=== PATIENT | female | born 1985 | race Caucasian/White ===

== ENCOUNTER → 2017-01-26 | Day surgery (SDC) | payer OTHER ==
[2017-01-13 11:03] VITALS: Ht 154.9 cm; Wt 50.0 kg
--- NOTE | 2017-01-25 12:52 | History and Physical: Surg Cnt ---
History & Physical Date Jan 25, 2017. Chief Complaint nasal obstruction History of Present Illness The patient is a 31 year old female with complaints of nasal blockage Additional History Hepatic Disease: No Endocrine Disorder: No Kidney Disease: No Hypertension: No Heart Disease: No Bleeding Tendencies: No Infectious Diseases: No Allergies Coded Allergies: Sulfa Antibiotics (Verified Allergy, Unknown, HIVES, 09/15/15) Home Medications Scheduled Levocetirizine Dihydrochloride (Xyzal), 1 TAB PO QAM Nortriptyline Hcl (Pamelor), 75 MG PO HS Probiotic Product (Probiotic), 1 CAP DAILY Scheduled PRN Fluticasone Propionate (Nasal) (Flonase Allergy Relief), 1 SPRAY NA DAILY PRN for CONGESTION Physical Examination Skin: warm/dry, no rash Eyes: normal inspection, EOMI, sclerae normal ENT: + pertinent finding (septal deviation with obstruction) Head: normocephalic, atraumatic Neck: supple, no adenopathy, trachea midline Respiratory/Chest: lungs clear, normal breath sounds, no respiratory distress Cardiovascular: regular rate, rhythm, no edema, no murmur Abdomen / GI: normal bowel sounds, non tender Back: normal inspection Extremities: normal inspection, normal range of motion Neurologic/Psych: no motor/sensory deficits, alert, normal reflexes, oriented x 3 Diagnosis septal deviation, rhinitis Plan of Treatment septoplasty, celon turbinates
[~2017-01-26] VITALS: Ht 154.9 cm; Wt 50.0 kg
[~2017-01-26] MED LIST: ATROPINE SULFATE 0.1 MG/ML 5ML SYR IV PRN; BACITRACIN OINT 15 GM TUBE ONE; CEFAZOLIN 1000MG/55 ML D5W IV SCH; DEXAMETHASONE SOD INJ 4 MG/ML VIAL ONE; EpHEDrine SULFATE INJ 50 MG/ML AMP IV PRN; EpINEphrine INJ 1MG/ML AMP 1 MG/ML AMP ONE; FENTANYL CITRATE INJ 50 MCG/1 ML 2 ML VIAL IV PRN; FENTANYL CITRATE INJ 50 MCG/1 ML 2 ML VIAL ONE; FLUT0.15; GELATIN SPONGE 12-7MM ONE; LEVO-371 PO; LIDO 2%/EPINEPHRINE 1:100000 20 ML VIAL INFIL ONE; LIDOCAINE 4% MPF SOAK 5 ML = 1 DOSE TOP ONE; LIDOCAINE HCL 2% 2 ML VIAL (20MG/ML) ONE; METOCLOPRAMIDE HCL INJ 5 MG/ML 2 ML VIAL ONE; MIDAZOLAM HCL 1 MG/ML 2ML VIAL ONE; MISCCAP80; NORT75CA2 PO; NURSING VERBAL MED ORDER ONE; ONDANSETRON INJ 2 MG/ML 2 ML VIAL IV PRN; ONDANSETRON INJ 2 MG/ML 2 ML VIAL ONE; OXYC-57 PO; OXYCODONE/ACETAMINOPHEN 5-325 TAB PO PRN; PROMETHAZINE HCL INJ 6.25 MG in SODIUM CHLORIDE 0.9% 50ML 50 ML IV PRN; PROPOFOL IV EMULSION 10 MG/ML 20 ML VIAL IV ONE; SCOPOLAMINE 1.5 MG TDSY TD ONE; SODIUM CHLORIDE 0.9% 1000ML 1,000 ML IV SCH
--- NOTE | 2017-01-26 07:47 | History & Physical Bridge Note ---
H&P Re-Evaluation Bridge Note: I have examined the patient, reviewed the History & Physical and in the interval since the performance of the History & Physical I have noted the following changes of clinical significance: No changes noted
[2017-01-26] MEDS: LACTATED RINGER'S 1000ML 1,000 ML IV SCH ×2 (08:03→09:29)
--- NOTE | 2017-01-26 09:04 | Discharge Instructions-SurgCtr ---
Discharge Instructions Date of Service Jan 26, 2017. Visit Reason for Visit: Septal Deviation Discharge Discharge Diagnosis / Problem: same Discharge Goals Goal(s): Improve function Activity Recommendations Activity Limitations: per Instructions/Follow-up section Anesthesia . Post Anesthesia Instructions: If you have had General Anesthesia or IV Sedation: * Do not drive today. * Resume driving when surgeon permits. * Do not make important decisions or sign legal documents today. * Call surgeon for: 1. Temperature elevations greater than 101 degrees F. 2. Uncontrollable pain. 3. Excessive bleeding. 4. Persistent nausea and vomiting. 5. Medication intolerance (nausea, vomiting or rash). * For nausea and vomiting use only clear liquids such as: tea, soda, bouillon until nausea subsides, then gradually increase diet as tolerated. * If you have any concerns or questions, call your surgeon's office. If physician is unavailable and it is an emergency, call 911 or go to the nearest emergency room. . Instructions / Follow-Up Instructions / Follow-Up ACTIVITY RECOMMENDATIONS: * Being up and around is good, but no strenuous activity, heavy lifting or physical exertion for one week. * Keep your head elevated 30 degrees when lying down or sleeping. * Do not blow your nose for 48 hours, sniff back instead. * Avoid hot showers. OVER THE COUNTER MEDICATIONS: * You may use Tylenol * Avoid aspirin or aspirin containing products, e.g. as they may increase bleeding. SPECIAL CARE INSTRUCTIONS: * Expect to have bloody drainage from your nose and/or down your throat for one to three days. Change drip pad as needed. * Begin irrigating your nose with saline solution today, at least six to ten times per day and sniff back to help remove old clots or crust. * You may experience nasal and facial congestion, pain and pressure, this is normal. * Please call with any significant and/or progressive pain, redness, swelling around the eyes, visual changes, fever of 101.5 degrees F, active bleeding or any problems or concerns. * If active bleeding occurs, spray the nose three times at one minute intervals with Afrin spray and call or cell phone: . If unable to reach the doctor, go to the nearest Emergency Department. Special Diet: * Avoid extremely hot fluids. FOLLOW UP VISIT: Follow-up Visit with Dr. Pearl If not already scheduled, please call to schedule. Diet Recommendations Home Diet: no limitations Procedures Procedures Performed: Septoplasty, Celon Turbinates Pending Studies Studies pending at discharge: no Medical Emergencies . Who to Call and When: Medical Emergencies: If at any time you feel your situation is an emergency, please call 911 immediately. . Non-Emergent Contact Non-Emergency issues call your: Primary Care Provider . . "Provider Documentation" section prepared by Akua Pearl. [facility] [place] Drug Monitoring Program Search Results: no issues identified
--- NOTE | 2017-01-26 09:27 | [facility] Operative Report ---
Operative Report Operative Date Jan 26, 2017. Pre-Operative Diagnosis Septal Deviation Post-Operative Diagnosis Same Procedure(s) Performed Septoplasty, Celon Turbinates Surgeon Dr. Melani Pearl Code And Test Clerk Surgeon(s) None Estimated Blood Loss 10 cc Findings Septal deviation to the left with obstruction Specimens None Drains none Anesthesia Gen. Complication(s) None Disposition Recovery Room / PACU Implants None Indications 31-year-old lady with left-sided nasal obstruction due to septal deviation Description of Procedure The patient was brought to the operating room placed in the supine position general anesthesia was induced using LMA. The nose was decongested using topical cottonoids with a solution of 4 mL of 4% Xylocaine mixed with 1 mL of epinephrine. Injection of 2% Xylocaine with 1 100,000 strength epinephrine was used. The left hemitransfixion incision was made using the 15 blade. The mucoperichondrial was elevated off of the left side of the septum. Cartilage was inferiorly from the vomer maxillary crest and posteriorly from the perpendicular plate of the ethmoid. Bilateral posterior tunnels were elevated. The bony cartilaginous spur projecting to the left was removed using the 15 blade and caudal dissector and Cherise forceps and the Adryan- Sergio rongeurs. A columella pocket was made using the iris scissors and the caudal end of the septum was implanted into this columella pocket the septum was returned to the midline in this manner. The incision was closed with continuous 40 plain gut suture in a mattress fashion. The inferior turbinates were treated with radiofrequency volume reduction using the Celon machine creating 3 lesions in the right inferior turbinate and for lesions in the left inferior turbinate with the settings at 18. The inferior turbinates were fractured laterally. Anterior nasal packing of Gelfoam was placed the patient tolerated the procedure well and was taken to the recovery area in satisfactory condition. I attest to the content of the Intraoperative Record and any orders documented therein. Any exceptions are noted below.
--- NOTE | 2017-01-26 10:19 | Anesthesiology Progress Note ---
Anesthesia Post Op Note Date & Time Jan 26, 2017 at 10:19 Vital Signs Pain Intensity: 5.0 Vital Signs Past 12 Hours Date Time Temp Pulse Resp B/P (MAP) Pulse Ox O2 Delivery O2 Flow Rate FiO2 01/26/17 09:43 61 13 99 01/26/17 09:43 59 13 01/26/17 09:43 61 13 99 01/26/17 09:43 36.4 59 13 01/26/17 09:42 114/53 01/26/17 09:42 114/53 01/26/17 09:38 66 14 01/26/17 09:38 66 14 100 01/26/17 09:38 66 14 01/26/17 09:38 66 14 100 01/26/17 09:36 122/81 01/26/17 09:36 122/81 01/26/17 09:33 53 11 99 01/26/17 09:33 53 11 01/26/17 09:33 53 11 01/26/17 09:33 53 11 99 01/26/17 09:31 122/83 01/26/17 09:31 122/83 01/26/17 09:28 61 13 01/26/17 09:28 56 13 99 01/26/17 09:28 61 13 01/26/17 09:28 56 13 99 01/26/17 09:27 109/63 01/26/17 09:27 109/63 01/26/17 09:23 54 16 01/26/17 09:23 54 16 01/26/17 09:23 52 16 100 01/26/17 09:23 52 16 100 01/26/17 09:21 126/92 01/26/17 09:21 126/92 01/26/17 09:18 59 13 01/26/17 09:18 58 13 100 01/26/17 09:18 58 13 100 01/26/17 09:18 59 13 01/26/17 09:16 127/90 01/26/17 09:16 127/90 01/26/17 09:13 61 12 01/26/17 09:13 60 12 100 01/26/17 09:13 60 12 100 01/26/17 09:13 61 12 01/26/17 09:11 120/81 01/26/17 09:11 120/81 01/26/17 09:08 71 11 7/6/17 09:08 70 11 100 01/26/17 09:08 70 11 100 01/26/17 09:08 71 11 01/26/17 09:05 121/85 01/26/17 09:05 121/85 01/26/17 09:04 36.5 71 16 118/86 100 Humidified Oxygen 6 Mask 01/26/17 09:04 118/82 01/26/17 09:04 118/82 01/26/17 07:36 36.9 68 16 103/69 (80) 97 Room Air Notes Mental Status: alert / awake / arousable, participated in evaluation Pt Amnestic to Procedure: Yes Nausea / Vomiting: adequately controlled Pain: adequately controlled Airway Patency, RR, SpO2: stable & adequate BP & HR: stable & adequate Hydration State: stable & adequate Anesthetic Complications: no major complications apparent
[2017-01-26 10:45] VITALS: BP 126/85; PULSE 59; TEMP 36.6; O2SAT 100
== END | disposition home or self-care (01) ==
LOC: X.SURG 07:26 → MERGE 08:15
PROVIDERS: ATTEND Otolaryngology
DX: J34.2 Deviated nasal septum (principal); J34.89 Other specified disorders of nose and nasal sinuses

== ENCOUNTER → 2018-02-19 | Outpatient (CLI) | payer OTHER ==
[~2018-02-19] MED LIST changes: -ATROPINE SULFATE 0.1 MG/ML 5ML SYR IV PRN; -BACITRACIN OINT 15 GM TUBE ONE; -CEFAZOLIN 1000MG/55 ML D5W IV SCH; -DEXAMETHASONE SOD INJ 4 MG/ML VIAL ONE; -EpHEDrine SULFATE INJ 50 MG/ML AMP IV PRN; -EpINEphrine INJ 1MG/ML AMP 1 MG/ML AMP ONE; -FENTANYL CITRATE INJ 50 MCG/1 ML 2 ML VIAL IV PRN; -FENTANYL CITRATE INJ 50 MCG/1 ML 2 ML VIAL ONE; -GELATIN SPONGE 12-7MM ONE; -LEVO-371 PO; +LEVO5TAB2 PO; -LIDO 2%/EPINEPHRINE 1:100000 20 ML VIAL INFIL ONE; -LIDOCAINE 4% MPF SOAK 5 ML = 1 DOSE TOP ONE; -LIDOCAINE HCL 2% 2 ML VIAL (20MG/ML) ONE; -METOCLOPRAMIDE HCL INJ 5 MG/ML 2 ML VIAL ONE; -MIDAZOLAM HCL 1 MG/ML 2ML VIAL ONE; -MISCCAP80; -NURSING VERBAL MED ORDER ONE; -ONDANSETRON INJ 2 MG/ML 2 ML VIAL IV PRN; -ONDANSETRON INJ 2 MG/ML 2 ML VIAL ONE; -OXYC-57 PO; -OXYCODONE/ACETAMINOPHEN 5-325 TAB PO PRN; -PROMETHAZINE HCL INJ 6.25 MG in SODIUM CHLORIDE 0.9% 50ML 50 ML IV PRN; -PROPOFOL IV EMULSION 10 MG/ML 20 ML VIAL IV ONE; -SCOPOLAMINE 1.5 MG TDSY TD ONE; -SODIUM CHLORIDE 0.9% 1000ML 1,000 ML IV SCH
== END | disposition home or self-care (01) ==
LOC: C.CPL 13:39
PROVIDERS: ATTEND Psychiatry & Neurology Psychiatry
DX: F33.1 Major depressive disorder, recurrent, moderate (principal)

== ENCOUNTER → 2018-03-08 | Outpatient (CLI) | payer OTHER ==
--- NOTE | 2018-03-08 13:10 | DIAGNOSTIC IMAGING REPORT ---
CHEST 2 VIEWS ROUTINE HISTORY: SHORTNESS OF Breath, palpitations COMPARISON: Outside hospital chest CT 09/03/2015. FINDINGS: The lungs are clear. Cardiac silhouette is normal in size. No pleural effusions. No pneumothorax. IMPRESSION: No acute process. Electronically signed by: Jorden Soriano M.D. 03/08/2018 1:09 PM Dictated Date/Time: 03/08/2018 1:07 PM
[2018-03-08 14:49] LABS: BASO % 0.4 %; BASO ABS # 0.03 K/uL (0-0.2); EOS % 1.8 %; EOS ABS # 0.13 K/uL (0-0.5); HEMATOCRIT 38.9 % (37-47); HEMOGLOBIN 13.6 g/dL (12.0-16.0); IG# 0.01 K/uL (0.00-0.02); LYMPH % 29.5 %; LYMPH ABS # 2.19 K/uL (1.2-3.4); MEAN CELL VOLUME 91.5 fL (80-100); MONO % 7.5 %; MONO ABS # 0.56 K/uL (0.11-0.59); NEUT % 60.7 %; PLATELET COUNT 263 K/uL (130-400); RED CELL DISTRIBUTION WIDTH CV 12.9 % (11.5-14.5); RED CELL DISTRIBUTION WIDTH SD 43.2 fL (36.4-46.3); WHITE BLOOD COUNT 7.42 K/uL (4.8-10.8)
[2018-03-08 15:18] LABS: ALBUMIN 4.1 gm/dl (3.4-5.0); ALKALINE PHOSPHATASE 56 U/L (45-117); ALT/SGPT 21 U/L (12-78); AST/SGOT 20 U/L (15-37); BLOOD UREA NITROGEN 7 mg/dl (7-18); CALCIUM 9.1 mg/dl (8.5-10.1); CARBON DIOXIDE 26 mmol/L (21-32); CREATININE 0.74 mg/dl (0.60-1.20); GLUCOSE 83 mg/dl (70-99); POTASSIUM 3.6 mmol/L (3.5-5.1); SODIUM 137 mmol/L (136-145); TOTAL PROTEIN 7.2 gm/dl (6.4-8.2)
== END | disposition home or self-care (01) ==
LOC: C.RAD 12:38
PROVIDERS: ATTEND Family Medicine
DX: R00.2 Palpitations (principal); R06.02 Shortness of breath